=== PATIENT | female | born 1990 | race Caucasian/White ===

== ENCOUNTER 2017-04-12 17:08 | Emergency (ER) | payer MEDICAID, OTHER ==
[2017-04-12 18:13] LABS: ABS Basophils 0.1 10^3/ul (0-0.2); ABS Eosinophils 0.1 10^3/ul (0-0.6); ABS Lymphocytes 2.8 10^3/ul (1.0-4.8); ABS Monocytes 0.5 10^3/ul (0-0.8); ABS Neutrophils 3.8 10^3/ul (1.5-7.7); ABS Nucleated RBC 0 10^3/ul; Eosinophil % 1.2 % (0-6); Hematocrit 39 % (35-47); Hemoglobin 13.5 g/dl (12.0-16.0); Lymphocyte % 39.1 % (25-47); Mean Corpuscular HGB Conc 34 g/dl (31-36); Mean Corpuscular Hemoglobin 30 pg (27-31); Mean Corpuscular Volume 88 fL (80-97); Mean Platelet Volume 7 um3 (7.4-10.4); Nucleated Red Blood Cells % 0; Platelet Count 239 10^3/ul (150-450); Red Blood Count 4.49 10^6/ul (4.0-5.4); Red Cell Distribution Width 14 % (10.5-15); White Blood Count 7.2 10^3/ul (3.5-10.8)
[2017-04-12 18:15] LABS: Urine Appearance Clear; Urine Blood Negative (Negative); Urine Color Yellow; Urine Ketones Negative (Negative); Urine Protein Negative (Negative); Urine Urobilinogen Negative (Negative)
[2017-04-12 18:27] LABS: EGFR Non-African American 88.1 (>60)
[2017-04-12 19:22] VITALS: BP 129/81
--- NOTE | 2017-04-12 21:36 | RAD ---
INDICATION: Pelvic pain COMPARISON: October 17, 2013 TECHNIQUE: Longitudinal and transverse transvaginal scans of the pelvis were obtained. FINDINGS: Uterus: The uterus is normal in size. There are no focal masses. The uterus measures 8.5 x 4.3 x 5.4 cm. Endometrial thickness: The endometrial thickness is measured at 1.3 cm. There is an IUD in expected position. Free fluid: There is trace free fluid . Ovaries: The ovaries are normal in size. The right ovary measures 3.9 x 2.0 x 2.2 cm. The left ovary measures 3.1 x 1.3 x 1.9 cm. . Doppler interrogation demonstrates flow to each ovary. Other: None IMPRESSION: THE IUD IS IN EXPECTED POSITION. TRACE FREE FLUID.
== END 2017-04-12 21:46 | disposition left against medical advice (07) ==
LOC: ED 17:08
DX: R10.30 Lower abdominal pain, unspecified (principal); Z53.21 Procedure and treatment not carried out due to patient leaving prior to being seen by health care provider
CPT/HCPCS: 36415; 76830; 80053; 81003; 83605; 85025

== ENCOUNTER 2017-05-14 18:14 | Emergency (ER) | payer OTHER ==
[2017-05-14] MEDS ORDERED: Acetaminophen TAB* 325 MG PO ONE (19:34)
[2017-05-14] MEDS ORDERED: Ibuprofen TAB* 800 MG PO ONE (19:35)
--- NOTE | 2017-05-14 19:36 | ED ---
Influenza-Like Illness - HPI Summary HPI Summary: 26-year-old female presents with body aches fever and cough for the past day. She states no one else is sick. She has no medical conditions. She denies any chest pain or shortness of breath. She admits occasional sore throat. She admits to nausea but denies any vomiting diarrhea or abdominal pain. She states has aches all over. She denies any neck pain. she denies any headache or photophobia. She hasn't tried anything for his symptoms. - History of Current Complaint Chief Complaint: EDFluSymptoms Time Seen by Provider: 05/14/17 18:56 - Allergy/Home Medications Allergies/Adverse Reactions: Allergies Allergy/AdvReac Type Severity Reaction Status Date / Time Sulfa (Sulfonamide Allergy Rash Verified 05/14/17 18:46 Antibiotics) PMH/Surg Hx/FS Hx/Imm Hx Endocrine/Hematology History: Denies: Hx Diabetes Cardiovascular History: Reports: Other Cardiovascular Problems/Disorders - CARDIAC ABBLATION-NO PROBLEMS SINCE Denies: Hx Hypertension, Hx Pacemaker/ICD Sensory History: Denies: Hx Hearing Aid Psychiatric History: Denies: Hx Panic Disorder - Surgical History Surgery Procedure, Year, and Place: CARDIAC ABBLATION FOR SVT; APPY; TONSILLECTOMY Infectious Disease History: No Infectious Disease History: Denies: Traveled Outside the [place] in Last 30 Days - Family History Known Family History: Positive: Hypertension - Social History Alcohol Use: None Substance Use Type: Reports: None Smoking Status (MU): Never Smoked Tobacco Review of Systems Positive: Fever, Chills, Fatigue Positive: Sore Throat, Nasal Discharge Negative: Chest Pain Positive: Cough. Negative: Shortness Of Breath Positive: Nausea. Negative: Abdominal Pain, Vomiting, Diarrhea All Other Systems Reviewed And Are Negative: Yes Physical Exam Triage Information Reviewed: Yes Vital Signs On Initial Exam: Initial Vitals Temp Pulse Resp BP Pulse Ox 98.8 F 101 17 134/78 99 05/14/17 18:43 05/14/17 18:43 05/14/17 18:43 05/14/17 18:43 05/14/17 18:43 Vital Signs Reviewed: Yes Appearance: Positive: Well-Appearing Skin: Positive: Warm, Dry Head/Face: Positive: Normal Head/Face Inspection Eyes: Positive: Normal, EOMI, LAXMI, Conjunctiva Clear ENT: Positive: Normal ENT inspection, Pharynx normal, TMs normal Neck: Positive: Supple, Nontender, No Lymphadenopathy. Negative: Nuchal Rigidity Respiratory/Lung Sounds: Positive: Clear to Auscultation, Breath Sounds Present Cardiovascular: Positive: Normal, RRR Abdomen Description: Positive: Nontender, Soft Bowel Sounds: Positive: Present Musculoskeletal: Positive: Normal Neurological: Positive: Normal Psychiatric: Positive: Normal Diagnostics - Vital Signs Vital Signs Temp Pulse Resp BP Pulse Ox 05/14/17 18:43 98.8 F 101 17 134/78 99 - Laboratory Lab Results: Lab Results 05/14/17 Range/Units 18:46 Influenza A (Rapid) Negative (Negative) Influenza B (Rapid) Negative (Negative) Lab Statement: Any lab studies that have been ordered have been reviewed, and results considered in the medical decision making process. Flu Symptom Course/Dx - Course Course Of Treatment: 26-year-old female presents with body aches fever and cough for the past day. She states no one else is sick. She has no medical conditions. She denies any chest pain or shortness of breath. She admits occasional sore throat. She admits to nausea but denies any vomiting diarrhea or abdominal pain. She did she states all over. She denies any neck pain she denies any headache or photophobia. She hasn't tried anything for his symptoms. On exam pharynx normal. Lungs clear to auscultation. Soft nontender. Flu negative. Will treat as a viral illness with Tylenol and ibuprofen. We'll give dose here. Patient understands and agrees with plan. - Diagnoses Differential Diagnosis/HQI/PQRI: Positive: Influenza, Pneumonia, Upper Respiratory Infection Provider Diagnoses: Upper respiratory infection Discharge - Discharge Plan Condition: Good Disposition: HOME Patient Education Materials: Upper Respiratory Infection (ED) Forms: *Work Release Referrals: Jama Cavanaugh DO [Primary Care Provider] - Additional Instructions: Alternate Tylenol and ibuprofen every 6 hours drink fluids as tolerated and follow BRAT diet when would like to eat: bananas, rice, applesauce, toast Use saline rinses in nose for nasal congestion Follow up with primary within 5 days Return to ED if develop any new or worsening symptoms
[2017-05-14 20:16] VITALS: BP 000/00
== END 2017-05-14 20:15 | disposition home or self-care (01) ==
LOC: ED 18:14
DX: J06.9 Acute upper respiratory infection, unspecified (principal); Z88.2 Allergy status to sulfonamides
CPT/HCPCS: 87502; 99282; A9270-GY

== ENCOUNTER 2023-09-20 10:42 | Inpatient (IN) ==
[2023-09-20] MEDS ORDERED: Nalbuphine 10 MG/ML 1 ML VIAL IV PRN (11:16)
[2023-09-20] MEDS ORDERED: Lidocaine 1% VIAL 10 MG/ML 30 ML VIAL INJ PRN (11:16)
[2023-09-20] MEDS ORDERED: Prochlorperazine 5 mg/ml 2 ml VIAL (10 mg) IV PRN (11:16)
[2023-09-20] MEDS ORDERED: Oxytocin in LR 20,000 MILLI.UNIT/1,000 ML BAG IV SCH (12:15)
[2023-09-20 13:19] LABS: ABS Lymphocytes 2.5 10^3/uL (1.0-4.8); ABS Monocytes 0.5 10^3/uL (0.0-0.9); ABS Neutrophils 8.1 10^3/uL (1.5-7.6); Eosinophil % 0.3 %; Hematocrit 35.6 % (35-45); Hemoglobin 11.9 g/dL (11.5-14.3); Lymphocyte % 22.2 %; Mean Corpuscular Hemoglobin 29.5 pg (27-33); Mean Corpuscular Hgb Conc 33.4 g/dL (31-36); Mean Corpuscular Volume 88.4 fL (80-97); Platelet Count 250 10^3/uL (150-450); Red Blood Count 4.02 10^6/uL (3.63-4.92); Red Cell Distribution Width 14.6 % (12-17); White Blood Count 11.1 10^3/uL (3.8-11.8)
[2023-09-20] MEDS: Buffered Lidocaine 1% SYRIN 1 ml INTRADERM ONE (13:36)
[2023-09-20 14:18] LABS: Urine Benzodiazepine Screen None Detected (None Detect); Urine Cannabinoids Screen None Detected (None Detect); Urine Opiates Screen None Detected (None Detect)
[2023-09-20] MEDS ORDERED: Lidocaine 2% JELLY 6 ML Topical TOPICAL ONE (15:23)
[2023-09-20] MEDS: Lactated Ringers 1000 ml BAG 1,000 ML IV ONE (15:42)
[2023-09-20] MEDS: Ondansetron 4 mg VIAL 2 MG/ML 2 ml VIAL IV PRN (15:46)
[2023-09-20] MEDS ORDERED: Lidocaine 1.5% EPI 1:200,000 30 ML SDV ONE (16:21)
[2023-09-20] MEDS: OBEPIDURAL (200 ML) 200 ML EPIDURAL SCH (16:38)
[2023-09-20] MEDS: Lactated Ringers 1000 ml BAG 1,000 ML IV SCH (16:53)
[2023-09-20] MEDS ORDERED: Phenylephrine 40 mcg/mL 10mL (400mcg) SYRINGE IV PUSH PRN ×2 (16:58)
[2023-09-20] MEDS ORDERED: Lactated Ringers 1000 ml BAG 1,000 ML IV ONE (16:58)
[2023-09-20] MEDS ORDERED: Sodium Citrate/Citric Acid LIQ 15 ML UDC PO PRN (16:58)
[2023-09-20] MEDS ORDERED: Lactated Ringers 1000 ml BAG 1,000 ML IV SCH ×2 (17:00→22:00)
[2023-09-20] MEDS: OBEPIDURAL (200 ML) 200 ML EPIDURAL ONE (17:36)
[2023-09-20 17:57] LABS: Urine Appearance Clear; Urine Bilirubin Negative (Negative); Urine Blood Negative (Negative); Urine Color Light-Yellow; Urine Glucose Negative (Negative); Urine Ketones Trace (Negative); Urine Nitrite Negative (Negative); Urine Protein Negative (Negative); Urine Specific Gravity 1.011 (1.002-1.030); Urine Urobilinogen Negative (Negative); Urine pH 6.5 (5.0-8.0)
[2023-09-20] MEDS: Oxytocin in LR 20,000 MILLI.UNIT/1,000 ML BAG IV SCH (21:10)
[2023-09-20] MEDS ORDERED: Witch Hazel PAD JAR TOPICAL PRN (21:36)
[2023-09-20] MEDS ORDERED: Dibucaine 1% OINT 28.35 GM TUBE PR PRN (21:36)
[2023-09-20] MEDS ORDERED: Glycerin ADULT 2.4 gm SUPP PR PRN (21:36)
[2023-09-20] MEDS: Methylergonovine 0.2 mg AMPULE 1 ml AMP ONE (21:54)
[2023-09-20] MEDS: ceFAZolin 2 GM in NS PREMIX 2 GM/100 ML BAG IVPB ONE (22:24)
[2023-09-21 06:55] LABS: ABS Basophils 0.1 10^3/uL (0.0-0.1); ABS Lymphocytes 2.7 10^3/uL (1.0-4.8); ABS Monocytes 0.8 10^3/uL (0.0-0.9); ABS Neutrophils 9.7 10^3/uL (1.5-7.6); ABS Nucleated RBC 0.01 10^3/ul; Eosinophil % 0.2 %; Hematocrit 32.7 % (35-45); Hemoglobin 11.2 g/dL (11.5-14.3); Lymphocyte % 20.3 %; Mean Corpuscular Hemoglobin 30.6 pg (27-33); Mean Corpuscular Hgb Conc 34.2 g/dL (31-36); Mean Corpuscular Volume 89.7 fL (80-97); Nucleated Red Blood Cells % 0.1 %/100WBC (0.0-0.8); Platelet Count 190 10^3/uL (150-450); Red Blood Count 3.65 10^6/uL (3.63-4.92); Red Cell Distribution Width 14.7 % (12-17); White Blood Count 13.3 10^3/uL (3.8-11.8)
[2023-09-21] MEDS: miSOPROStol 100 mcg TAB ONE (11:24)
[2023-09-22 07:57] VITALS: BP 121/81
== END 2023-09-22 13:49 | disposition home or self-care (01) | DRG 560 ==
LOC: MCHOBOUT 10:42 → MCHOB 10:53
PROVIDERS: ADMIT Advanced Practice Midwife; ATTEND Advanced Practice Midwife